=== PATIENT | male | born 1960 | race African-American/Black ===

== ENCOUNTER 2017-06-13 00:52 | Emergency (ER) | payer SELFPAY ==
[~2017-06-13] VITALS: Ht 180.3 cm; Wt 85.5 kg
[2017-06-13 01:13] VITALS: BP 133/67; PULSE 73; RESP 18; TEMP 98.6; O2SAT 98
[2017-06-13] MEDS ORDERED: KETOROLAC TROMETHAMINE 60 MG/2 ML (IM) VIAL IM ONE (04:30)
[2017-06-13] MEDS ORDERED: LIDOCAINE HCL 1% 50 ML VIAL IM ONE (04:30)
[2017-06-13] MEDS ORDERED: oxyCODONE/ACETAMINOPHEN 10 MG/325 MG TAB PO ONE (04:30)
[2017-06-13] MEDS ORDERED: AMOX500T PO (05:20)
[2017-06-13] MEDS ORDERED: PERC5TAB12 PO (05:20)
--- NOTE | 2017-06-13 05:28 | PD ---
HPI Chief Complaint: Oral / Dental Pain or Problem Time Seen by Provider: 04:20 Travel History International Travel<30 days: No Contact w/Intl Traveler<30days: No Traveled to known affect area: No History of Present Illness HPI The patient is a 56-year-old male that complains of dental pain and tooth #19 since last night he denies any fever. He denies any history of heart murmur. PFSH Past Medical History Medical History: Denies Significant Hx Diminished Hearing: No Tetanus Vaccination: < 5 Years Influenza Vaccination: No Past Surgical History Other Surgery: Yes (fatty tissue removed from right shoulder ) Social History Alcohol Use: No Tobacco Use: Yes (/2 PPD ) Substance Use: No Allergies-Medications (Allergen,Severity, Reaction): Coded Allergies: No Known Allergies (Verified Allergy, Unknown, 06/13/17) Reported Meds & Prescriptions Reported Meds & Active Scripts Active Amoxicillin 500 Mg Tab 500 Mg PO TID Percocet (Oxycodone-Acetaminophen) 5-325 mg Tab 1 Tab PO Q4H PRN Review of Systems Except as stated in HPI: all other systems reviewed are Neg Physical Exam Narrative GENERAL: Well-nourished, well-developed patient. SKIN: Focused skin assessment warm/dry. HEAD: Normocephalic. EYES: No scleral icterus. No injection or drainage. NECK: Supple, trachea midline. No JVD or lymphadenopathy. CARDIOVASCULAR: Regular rate and rhythm without murmurs, gallops, or rubs. RESPIRATORY: Breath sounds equal bilaterally. No accessory muscle use. GASTROINTESTINAL: Abdomen soft, non-tender, nondistended. MUSCULOSKELETAL: No cyanosis, or edema. BACK: Nontender without obvious deformity. No CVA tenderness. DENTAL: No loose or chipped teeth. No malocclusion. Tooth #19 has no drainable abscesses present but it is exquisitely tender. It is broken down. Data Data Last Documented VS Vital Signs Date Time Temp Pulse Resp B/P (MAP) Pulse Ox O2 Delivery O2 Flow Rate FiO2 06/13/17 01:13 98.6 73 18 133/67 (89) 98 Orders Orders Lidocaine 1% Inj (50 Ml) (Xylocaine 1% I (06/13/17 04:30) Ceftriaxone Inj (Rocephin Inj) (06/13/17 04:30) Ketorolac Inj (Toradol Inj) (06/13/17 04:30) Oxycodone-Acetamin 10-325 Mg (Percocet 1 (06/13/17 04:30) MDM Medical Decision Making Medical Screen Exam Complete: Yes Emergency Medical Condition: Yes Medical Record Reviewed: Yes Differential Diagnosis Drainable dental abscess, dental abscess non-drainable, Reed's angina-highly unlikely Narrative Course The patient has a non-drainable dental infection. He is given a amoxicillin and Percocet and he needs to follow-up with a dentist. Diagnosis Primary Impression: Dental infection Additional Instructions: As we discussed, it is necessary to follow-up with a dentist. Do not drink alcohol or drive on the Percocet 5. Med/Other Pt SpecificInfo: Prescription(s) given Scripts Amoxicillin (Amoxicillin) 500 Mg Tab 500 MG PO TID for Infection, #30 TAB 0 Refills Prov: German Sow MD 06/13/17 Oxycodone-Acetaminophen (Percocet) 5-325 mg Tab 1 TAB PO Q4H Y for PAIN, #15 TAB 0 Refills Prov: German Sow MD 06/13/17 Disposition: DISCHARGE HOME Condition: Stable German Sow MD Jun 13, 2017 05:28
[2017-06-13 06:16] VITALS: BP 122/68
== END 2017-06-13 06:16 | disposition home or self-care (01) ==
LOC: PHED 00:52
DX: K04.7 Periapical abscess without sinus (principal); F17.200 Nicotine dependence, unspecified, uncomplicated
CPT/HCPCS: 96372; 99283; J0696; J1885